=== PATIENT | female | born 1955 | race Caucasian/White ===

== ENCOUNTER 2022-06-15 18:14 | Inpatient (IN) | payer MEDICARE ==
[2022-06-15] MEDS ORDERED: SODIUM CHLORIDE 0.9% 1000 ML 1,000 ML IV ONE (18:25)
[2022-06-15 18:37] LABS: Mean Corpuscular HGB Conc 27 % (30-34); Mean Corpuscular Volume 100 fl (79-97); Platelet Count 512 K/mm3 (140-440); Red Blood Count 2.34 M/mm3 (3.65-5.03)
--- NOTE | 2022-06-15 18:52 | XRay Report ---
CHEST 1 VIEW 06/15/2022 6:18 PM INDICATION / CLINICAL INFORMATION: unresponsiveness; pt intubated. COMPARISON: None available. FINDINGS: SUPPORT DEVICES: ET tube tip is about 3.7 cm above the awais. HEART / MEDIASTINUM: No significant abnormality. LUNGS / PLEURA: There is significant volume loss in the right upper lobe which may be due to central obstructing mass. There is also patchy opacification left lower lung. No pneumothorax. ADDITIONAL FINDINGS: No significant additional findings. Signer Name: Americo Oscar MD Signed: 06/15/2022 6:48 PM Workstation Name: [id number]
[2022-06-15 18:59] LABS: Hematocrit 23.4 % (30.3-42.9); Hemoglobin 6.3 gm/dl (10.1-14.3); Red Cell Distribution Width 31.7 % (13.2-15.2)
--- NOTE | 2022-06-15 19:10 | Emergency Department Report ---
HPI - General Chief Complaint: Cardiac Arrest/CPR PUI?: No Time Seen by Provider: 06/15/22 18:23 - HPI HPI: 66-year-old female with history of stage IV lung cancer, per EMSs report, unknown other past medical history, brought in status post cardiac arrest. EMS reports that they received a call at 5:34 PM stating that the patient was in cardiac arrest. They arrived at the scene at 5:43 PM and found the patient with her eyes open, pupils dilated, and patient unresponsive. Began CPR at 5:45 PM. Patient was found to be in PEA arrest. She received a total of 3 rounds of epinephrine and 1 amp of bicarb. The patient was emergently intubated with a size ET tube, with ET tube being at level 22 at the patient's lips. At 6:05 PM, patient had ROSC. Per EMSs report, patient had multiple family members present but none spoke Citizen Of [place] and therefore patient's CODE STATUS is unknown. Patient has remained unresponsive since their arrival. She did not receive RSI's at the time of intubation. She has not been given any medication for sedation. ED Past Medical Hx - Past Medical History Hx of Cancer: Yes (lung cancer) ED Review of Systems ROS: Stated complaint: CARDIAC ARREST Other details as noted in HPI Comment: Unobtainable due to pts medical conditions Physical Exam - Physical Exam Vital Signs: Vital Signs 06/15/22 18:27 Pulse Rate 130 H Blood Pressure 151/84 [Left] General: Gen: pt is intubated; unresponsive; GCS 3; pt severely emaciated HEENT: Normocephalic atraumatic ; pupils 4mm, fixed, dilated, non reactive to light sclera anicteric; Neck: Full range of motion, no midline spinal tenderness palpation, no JVD, no carotid bruits, no nuchal rigidity CVS: S1-S2 regular rate and rhythm with no gallops rubs or murmurs, chest wall nontender Pulmonary: Coarse breath sounds, patient being ventilated by EMS personnel via bag valve mask Abdomen: flat nondistended nontender no guarding or rebound tenderness, no palpable deformities or step-offs, normal active bowel sounds, no hepatosplenomegaly, no pulsatile masses : No erythema, no no obvious bleeding, external genitalia grossly unremarkable Extremities: No cyanosis no clubbing no edema, intact distal peripheral pulses,; pt has IO via EMS, in RLE Integumentary: Skin normal, no petechia no purpura no abscess no lacerations no evidence of trauma no evidence of infection Neuro: Patient is intubated, unresponsive, GCS 3, no spontaneous movements, no fasciculations or tremors Psych: Patient is unresponsive ED Course Vital Signs 06/15/22 18:27 Pulse Rate 130 H Blood Pressure 151/84 [Left] - Reevaluation(s) Reevaluation #1: 06/15/22 19:21 The patient's son-in-law whose name is Sarwat has arrived. He reports that the patient was diagnosed with lung cancer at [facility] in March 2022. He states she has not seen an oncologist since being discharged from that facility several months ago. He states that she had persistent weakness at that time and has had progressively worsening weakness over the past several weeks. He states that his who is the patient's daughter, reported that the p atient had collapsed at home and was not able to get up and was not breathing. He states he believes the patient is a DO NOT INTUBATE DO NOT RESUSCITATE with respect to advanced directives but he does not have verification of this. He advises me to telephone [facility] and spoke to the nurse on staff there. Per her verbal report the patient has no documented DO NOT INTUBATE DO NOT RESUSCITATE orders. The patient was referred to the Hospice given that the patient is a hospice patient and the number he provided was [phone] 1938: I telephoned [facility] and spoke to the nursing staff there. Per nurses report, the patient has no documented DO NOT INTUBATE DO NOT RESUSCITATE order in place. She states that her son-in-law, Sarwat, is the healthcare proxy listed on file for the patient. Reevaluation #2: 06/15/22 19:50 Patient reassessed. She continues to remain unresponsive. Pupils remain 4 mm fixed and dilated. She has no spontaneous movement of her extremities. Condition remains critical. ED Medical Decision Making - Lab Data Result diagrams: 06/15/22 18:30 - EKG Data -: EKG Interpreted by Me - EKG Data When compared to previous EKG there are: previous EKG unavailable, other Interpretation: nonspecific ST-T wave rodolfo 06/15/22 19:45 EKG interpreted by me: Ventricular rate 120 bpm. Patient has discernible with P waves. No ST segment depressions or elevations. Patient has poor baseline in the 1 and V3. Low voltage QRS in precordial leads. - Radiology Data Radiology results: report reviewed - Medical Decision Making 66-year-old female with lung cancer brought in by EMS for questionable witnessed cardiac arrest. ROSC obtained via EMS prior to patient's arrival. Patient arrived with sustained vitals but subsequently became hypotensive. Central venous catheter placed by admitting hospitalist, Dr. Monique. Please see patient's electronic health record for his documented procedure note as well as impression and plan. Case discussed at length with the patient's son-in-law who was present. See patient's EHR for my discussion with him. Serum labs reviewed. patient has been accepted to the CCU for further management Critical care attestation.: If time is entered above; I have spent that time in minutes in the direct care of this critically ill patient, excluding procedure time. ED Disposition Clinical Impression: Cardiac arrest, Lung cancer, High anion gap metabolic acidosis Disposition: 09 ADMITTED INPATIENT Is pt being admited?: Yes Does the pt Need Aspirin: No Condition: Critical
[2022-06-15 19:21] LABS: Albumin 2.1 g/dL (3.9-5); Calcium 9.8 mg/dL (8.4-10.2)
[2022-06-15] MEDS: NORepinephrine/NS 8 MG-250 ML 8 MG/250 ML INFUS..BTL IV SCH (19:41)
--- NOTE | 2022-06-15 19:41 | History and Physical Report ---
History of Present Illness Chief complaint: Cardiac arrest History of present illness: 66 YO Female with Stage 4 Lung Cancer, Malnutrition, Vascular Dementia, Cerebral Atherosclerosis presents ED for evaluation. Patient is intubated and ambulatory support at time my evaluation is unable to provide history. Patient history provided by EMS staff, ED staff, as well as patient's family who was made available by telephone for interview. Patient family members report patient became unresponsive while at her home. EMS was notified and upon arrival the patient was found to be in distress and found to be in cardiac arrest. Patient emergently intubated in the field and initiated on ACLS protocol. Patient transported to [facility] for further care and evaluation. Patient received 3 rounds of epinephrine with 1 amp of bicarbonate with subsequent return of spontaneous perfusing rhythm. Patient seen and evaluated in the emergency department. All lab and imaging studies reviewed. Patient found to have septic shock suspected secondary to obstructive pneumonia, acute hypoxemic respiratory failure, acute kidney injury, anoxic brain injury. Patient found to have multiple organ system failure with concomitant poor prognosis. Patient admitted to ICU due to increased risk of worsening symptoms and for medical stabilization. Patient initiated on IV pressor support in the emergency department. No further history is obtainable. Patient found to have poor prognosis. Advanced care planning conducted in ED. Critical care team consulted. Patient currently admitted to [facility]. Patient family revoked hospice benefit at this time and request inpatient care. Past History Past Medical History: cancer, other (See HPI) Past Surgical History: No surgical history, Other (Reviewed) Social history: lives with family Family history: no significant family history, other (Reviewed) Medications and Allergies Allergies Allergy/AdvReac Type Severity Reaction Status Date / Time No Known Allergies Allergy Verified 06/15/22 19:05 Active Meds: Active Medications NORepinephrine/NS 8 MG-250 ML (Norepinephrine/Ns 8 Mg-250 Ml (Double Conc)) 8 mg in 250 mls @ 3.75 mls/hr IV TITRATE TERI; Protocol Review of Systems ROS unobtainable: due to endotracheal tube, due to mental status Exam - Constitutional Vitals: Temp Pulse Resp BP Pulse Ox 130 H 151/84 06/15/22 18:27 06/15/22 18:27 General appearance: Present: severe distress - EENT Eyes: Present: mydriasis ENT: hearing decreased - Neck Neck: Present: supple, normal ROM - Respiratory Respiratory effort: labored Respiratory: bilateral: diminished, rhonchi - Cardiovascular Rhythm: other (Hypertensive tachycardic) Heart Sounds: Present: S1 & S2. Absent: rub, click - Extremities Extremities: pulses symmetrical, No edema Peripheral Pulses: abnormal (Capillary refill greater than 3.5 seconds) - Integumentary Integumentary: Present: dry, clammy, decreased turgor - Musculoskeletal Musculoskeletal: generalized weakness - Psychiatric Psychiatric: no appropriate mood/affect, no intact judgment & insight, no memory intact - Neurologic Neurologic: no CNII-XII intact, focal deficits, no moves all extremities, no gait normal HEART Score - HEART Score Troponin: Troponin T 0.099 ng/mL (0.00-0.029) H 06/15/22 18:30 Results - Labs CBC & Chem 7: 06/15/22 18:30 06/15/22 18:30 Labs: Abnormal lab results 06/15/22 06/15/22 Range/Units 18:30 18:30 WBC 12.8 H (4.5-11.0) K/mm3 RBC 2.34 L (3.65-5.03) M/mm3 Hgb 6.3 L (10.1-14.3) gm/dl Hct 23.4 L (30.3-42.9) % MCV 100 H (79-97) fl MCH 27 L (28-32) pg MCHC 27 L (30-34) % RDW 31.7 H (13.2-15.2) % Plt Count 512 H (140-440) K/mm3 Carbon Dioxide 16 L (22-30) mmol/L BUN 70 H (7-17) mg/dL Creatinine 1.9 H (0.6-1.2) mg/dL Glucose 159 H (65-100) mg/dL AST 354 H (5-40) units/L ALT 67 H (7-56) units/L Alkaline Phosphatase 171 H (35-129) units/L Troponin T 0.099 H (0.00-0.029) ng/mL NT-Pro-B Natriuret Pep 5902 H (0-900) pg/mL Total Protein 5.5 L (6.3-8.2) g/dL Albumin 2.1 L (3.9-5) g/dL Assessment and Plan - Patient Problems (1) Septic shock Status: Acute Plan to address problem: Sepsis protocol: Chest x-ray, CBC, CMP, urinalysis, IV antibiotic therapy, IV fluid resuscitation therapy, maintain mean arterial pressure greater than equal 65, IV pressor support, serial lactic acid level. The high probability of a clinically significant, sudden or life threatening deterioration of the [cardiac, pulmonary, neuro, renal, infectious disease] system(s) required my full and direct attention, intervention and personal management. The aggregate critical care time was [95] minutes. This time is in addition to time spent performing reported procedures but includes the following: [x] Data Review and interpretation [x] Patient assessment and monitoring of vital signs [x] Documentation [x] Medication orders and management (2) Cardiac arrest Status: Acute Plan to address problem: Patient treated" with ACLS protocol with return of perfusing cardiac rhythm. (3) Pneumonia Status: Acute Plan to address problem: Chest x-ray, IV antibiotic therapy, IV fluid resuscitation therapy, supplemental oxygen, pulse oximetry, nebulizer therapy. Blood culture. (4) Lung malignancy Status: Acute Plan to address problem: Chronic, supportive care. Patient found to have poor prognosis. (5) Toxic metabolic encephalopathy Status: Acute Plan to address problem: CT scan head, neuro check, supportive care, treat sepsis. (6) Acute kidney injury (MOE) with acute tubular necrosis (ATN) Status: Acute Plan to address problem: IV fluid resuscitation therapy, monitor urine output every shift, monitor fluid balance, BMP in a.m. to monitor serum Creatinine as well as GFR. (7) Metabolic acidosis Status: Acute Plan to address problem: IV fluid resuscitation therapy, IV bicarbonate therapy. (8) Anoxic brain injury Status: Acute Plan to address problem: CT scan head. Patient pupils fixed and dilated. Patient found to have poor prognosis. (9) DVT prophylaxis Status: Acute Plan to address problem: SCD to bilateral lower extremities while in bed (10) Advance care planning Status: Acute Plan to address problem: Disease education conducted, care plan discussed, diagnoses discussed, poor prognosis discussed. Patient family acknowledged understanding and agreed with care plan. Patient currently full code at this time. Patient family elects to revoke hospice benefit and pursue aggressive care at this time. Patient family will notify primary care team after family conference. +30 minutes. (11) Preventative health care Status: Acute Plan to address problem: Patient family were counseled regarding poor prognosis and possible discharge back to hospice care. End-of-life care, and withdrawal of life support. As well as CODE STATUS. +30 minutes.
--- NOTE | 2022-06-15 19:55 | Procedure Note ---
Date of procedure: 06/15/22 Pre-op diagnosis: Sepsis acute hypoxemic respiratory failure, cardiac arrest Post-op diagnosis: same Procedure: Right internal jugular vein central lumen catheter placement under ultrasound guidance The patient was prepped and draped in the usual sterile fashion. A timeout was taken with the patient's nurse at bedside to verify the correct patient, the correct procedure and correct operative site. Local anesthesia obtained with 1% lidocaine. The Seldinger technique was utilized with ultrasound guidance to introduce a seeker needle into the right internal jugular vein. A guidewire was then advanced via the seeker needle into the right internal jugular vein and the seeker needle subsequently removed. A scalpel was used to incise the skin at the insertion site. A dilator was then passed over the guidewire into the right internal jugular vein and subsequently removed over the guidewire. A preflush triple-lumen catheter was then advanced to the right internal jugular vein over the guidewire and the guidewire subsequently removed. All 3 ports flush and drawl with ease. A Biopatch was placed at the insertion site. 3-0 silk suture was utilized to secure the catheter in place. Estimated blood loss minimal. Specimens none, complications none, postoperative chest x-ray reveals a central lumen catheter in expected position. Anesthesia: local Surgeon: FRANCI HENRIQUEZ Estimated blood loss: minimal Pathology: none Condition: critical Disposition: ICU
--- NOTE | 2022-06-15 20:13 | XRay Report ---
CHEST 1 VIEW 06/15/2022 7:52 PM INDICATION / CLINICAL INFORMATION: central line. COMPARISON: Chest x-ray done earlier today FINDINGS: SUPPORT DEVICES: NG tube extends below the diaphragm into the stomach. Right IJ central venous cathet er tip projects over the superior cavoatrial junction. ET tube appears well positioned. HEART / MEDIASTINUM: Stable. LUNGS / PLEURA: Stable volume loss in the right upper lung concerning for possible central obstructin g mass. Left lower lobe opacity. No pneumothorax. ADDITIONAL FINDINGS: No significant additional findings. IMPRESSION: 1. Lines and tubes as described. Signer Name: Americo Oscar MD Signed: 06/15/2022 8:08 PM Workstation Name: [id number]
[2022-06-15 20:55] LABS: Anisocytosis 1+; Band Neutrophils # (Manual) 0.4 K/mm3; Basophils % (Manual) 0 % (0.0-1.8); Eosinophils % (Manual) 0 % (0.0-4.3); Monocytes % (Manual) 0 % (0.0-7.3); Total Cells Counted 100
[2022-06-15 20:57] LABS: Platelet Estimate Consistent w Auto; Toxic Granulation 2+; Toxic Vacuolation 1+
--- NOTE | 2022-06-15 21:38 | Cat Scan Report ---
CT head/brain wo con INDICATION / CLINICAL INFORMATION: 66 years Female; cardiac arrest, intubated, unresponsive. TECHNIQUE: Routine CT head without contrast. All CT scans at this location are performed using CT dos e reduction for ALARA by means of automated exposure control. COMPARISON: None. FINDINGS: BRAIN / INTRACRANIAL CONTENTS: No acute hemorrhage, mass effect, midline shift, hydrocephalus, or acu te, large territorial infarct. Mild, diffuse cerebral atrophy. There are mild areas of decreased attenuation in the white matter of the cerebral hemispheres. These are nonspecific findings and may be related to microangiopathy (hypertension, diabetes, atheroscleros is), given the patient's age. CRANIOCERVICAL JUNCTION: No significant abnormality. ORBITS: No significant abnormality of visualized orbits. SINUSES / MASTOIDS: Visualized paranasal sinuses and mastoid air cells are essentially clear. ADDITIONAL FINDINGS: Atherosclerotic disease is seen in the anterior circulation. IMPRESSION: 1. No focal mass, hemorrhage, hydrocephalus, or acute, large territorial infarct. Signer Name: Milo Barry MD, III Signed: 06/15/2022 9:34 PM Workstation Name: [id number]
[2022-06-15] MEDS ORDERED: MORPHINE 2 MG/1 ML INJ IV PRN (22:24)
[2022-06-15] MEDS ORDERED: MORPHINE 4 MG/1 ML INJ IV PRN (22:24)
[2022-06-15] MEDS ORDERED: ACETAMINOPHEN 650 MG RECT SUPP PR PRN (22:24)
[2022-06-15] MEDS ORDERED: VANCOMYCIN PHARMACY TO DOSE IV SCH (23:00)
[2022-06-15] MEDS: CEFEPIME/NS 2 GM/100 ML 2 GM/100 ML BAG IV SCH (23:09)
[2022-06-15 23:37] LABS: ABG HCO3 17.7 mmol/L (20.0-26.0); ABG Methemoglobin 0.4 % (0.0-1.5); ABG Oxygen Saturation 96.4 % (95.0-99.0); ABG PCO2 31.8 mm Hg; ABG PH 7.363 pH Units (7.350-7.450); ABG PO2 70.1 mm Hg (80.0-90.0)
[2022-06-15] MEDS ORDERED: VANCOMYCIN 1,250 MG in SODIUM CHLORIDE 0.9% 250ML 250 ML IV ONE (23:45)
[2022-06-16] MEDS: SODIUM CHLORIDE 0.9% 1000 ML 1,000 ML IV SCH ×2 (01:26→07:43)
[2022-06-16] MEDS ORDERED: LORazepam 2 MG/ML VIAL IV PRN (04:34)
[2022-06-16 05:06] LABS: Hematocrit 27.5 % (30.3-42.9); Hemoglobin 7.5 gm/dl (10.1-14.3); Mean Corpuscular HGB Conc 27 % (30-34); Mean Corpuscular Volume 96 fl (79-97); Red Blood Count 2.85 M/mm3 (3.65-5.03); Red Cell Distribution Width 31.6 % (13.2-15.2)
[2022-06-16 05:07] LABS: Platelet Count 620 K/mm3 (140-440)
[2022-06-16] MEDS: NORepinephrine/NS 8 MG-250 ML 8 MG/250 ML INFUS..BTL IV SCH ×2 (05:13→09:41)
[2022-06-16 05:39] LABS: Monocytes % (Manual) 6.5 % (0.0-7.3); Total Cells Counted 200
[2022-06-16 05:40] LABS: Anisocytosis 2+; Basophils % (Manual) 0 % (0.0-1.8)
[2022-06-16 05:44] LABS: Platelet Estimate Consistent w Auto
[2022-06-16] MEDS ORDERED: LIP THERAPY VASELINE TP PRN (08:35)
[2022-06-16] MEDS ORDERED: MINERAL OIL/PETROLATUM, WHITE OPHTH OINT 3.5 GM OU PRN (08:35)
[2022-06-16] MEDS ORDERED: SODIUM CHLORIDE 0.9% 500 ML 500 ML IV ONE (09:00)
[2022-06-16] MEDS ORDERED: SODIUM CHLORIDE 0.9% 1000 ML 1,000 ML IV ONE (09:00)
[2022-06-16] MEDS ORDERED: VASOPRESSIN 20 UNIT in SODIUM CHLORIDE 0.9% 100 ML IV SCH (09:00)
--- NOTE | 2022-06-16 09:14 | XRay Report ---
ABDOMEN 1 VIEW(S) INDICATION / CLINICAL INFORMATION: feeding tube placement. COMPARISON: Previous day. FINDINGS: TUBES / LINES: NG tube in satisfactory position. BOWEL GAS PATTERN: No significant abnormality. ADDITIONAL FINDINGS: No significant additional findings. IMPRESSION: Satisfactory NG tube placement. Signer Name: Ayush Staples MD Signed: 06/16/2022 9:09 AM Workstation Name: [id number]
[2022-06-16 09:31] LABS: Creatine Kinase MB 7.4 ng/mL (0.0-4.0)
[2022-06-16] MEDS: CEFEPIME/NS 2 GM/100 ML 2 GM/100 ML BAG IV SCH (09:41)
[2022-06-16 09:51] LABS: C-Reactive Protein 5.6 mg/dL (0.00-1.30)
[2022-06-16] MEDS ORDERED: SENNOSIDES/DOCUSATE SODIUM 8.6/50 MG TAB FEEDTUBE SCH (10:00)
[2022-06-16] MEDS ORDERED: HEPARIN 5,000 UNIT/1 ML VIAL SUB-Q SCH (10:00)
[2022-06-16] MEDS ORDERED: FAMOTIDINE 20 MG/2 ML INJ IV SCH ×2 (10:00)
[2022-06-16] MEDS ORDERED: fentaNYL 100 MCG/2 ML INJ IV PRN (10:08)
--- NOTE | 2022-06-16 10:25 | Consultation ---
History of Present Illness Consult date: 06/16/22 Requesting physician: ALIA MCCANN Reason for consult: other (Cardiac Arrest with ROSC) History of present illness: PULMONARY/CCM CONSULT NOTE (Full dictation # [id number]) Please see dictated notes for full details Past History Past Medical History: cancer, other (See HPI) Past Surgical History: No surgical history, Other (Reviewed) Social history: lives with family Family history: no significant family history, other (Reviewed) Medications and Allergies Allergies Allergy/AdvReac Type Severity Reaction Status Date / Time No Known Allergies Allergy Verified 06/15/22 19:05 Active Meds: Active Medications Acetaminophen (Acetaminophen 650 Mg Rect Supp) 650 mg MN Q6H PRN PRN Reason: Pain MILD(1-3)/Fever >100.5/CHIU Famotidine (Famotidine 20 Mg/2 Ml Inj) 10 mg IV BID TERI Last Admin: 06/16/22 09:41 Dose: 10 mg Fentanyl (Fentanyl 100 Mcg/2 Ml Inj) 50 mcg IV Q10MIN PRN PRN Reason: ANALGESIA Heparin Sodium (Porcine) (Heparin 5,000 Unit/1 Ml Vial) 5,000 unit SUB-Q Q12HR TERI Last Admin: 06/16/22 09:41 Dose: 5,000 unit Hydrophilic Ointment (Lip Therapy Vaseline) 1 applic TP Q2HR PRN PRN Reason: Dry Lips NORepinephrine/NS 8 MG-250 ML (Norepinephrine/Ns 8 Mg-250 Ml (Double Conc)) 8 mg in 250 mls @ 3.75 mls/hr IV TITRATE TERI; Protocol Last Admin: 06/16/22 09:41 Dose: 30 mcg/min, 56.25 mls/hr Sodium Chloride (Nacl 0.9% 1000 Ml) 1,000 mls @ 150 mls/hr IV DIRECT TERI Last Admin: 06/16/22 07:43 Dose: 150 mls/hr Cefepime HCl (Cefepime/Ns 2 Gm/100 Ml) 2 gm in 100 mls @ 200 mls/hr IV Q24HR TERI; Protocol Last Admin: 06/16/22 09:41 Dose: 200 mls/hr Vancomycin HCl (Vancomycin/Ns 500 Mg/100 Ml) 500 mg in 100 mls @ 100 mls/hr IV Q24H TERI Vasopressin 20 unit/ Sodium (Chloride) 101 mls @ 9.09 mls/hr IV TITR TERI; Protocol Last Titration: 06/16/22 09:03 Dose: 0.03 units/min, 9.09 mls/hr Fentanyl Citrate (Fentanyl Drip Premix) 2,000 mcg in 100 mls @ 1.93 mls/hr IV TITR TERI; Protocol Lorazepam (Lorazepam 2 Mg/Ml Vial) 2 mg IV Q1H PRN PRN Reason: Seizures Last Admin: 06/16/22 05:14 Dose: 2 mg Multi-Ingred Cream/Lotion/Oil/Oint (Mineral Oil/Petrolatum, White Ophth Oint 3.5 Gm) 1 applic OU Q4HR PRN PRN Reason: Dry Eye(s) Senna/Docusate Sodium (Sennosides/Docusate Sodium 8.6/50 Mg Tab) 1 tab FEEDTUBE BID TERI Last Admin: 06/16/22 09:41 Dose: 1 tab Sodium Chloride (Sodium Chloride 0.9% 10 Ml Flush Syringe) 10 ml IV BID [facility] Last Admin: 06/16/22 09:42 Dose: 10 ml Sodium Chloride (Sodium Chloride 0.9% 10 Ml Flush Syringe) 10 ml IV PRN PRN PRN Reason: LINE FLUSH Physical Examination Vital signs: Vital Signs Pulse BP 130 H 151/84 06/15/22 18:27 06/15/22 18:27 Results - Laboratory Findings CBC and BMP: 06/16/22 04:25 06/16/22 04:25 ABG ABG pH 7.363 pH Units (7.350-7.450) 06/15/22 23:18 ABG pCO2 31.8 mm Hg 06/15/22 23:18 ABG pO2 70.1 mm Hg (80.0-90.0) L 06/15/22 23:18 ABG O2 Saturation 96.4 % (95.0-99.0) 06/15/22 23:18 Abnormal lab findings: Abnormal Labs 06/15/22 06/15/22 06/15/22 18:30 18:30 18:30 WBC 12.8 H RBC 2.34 L Hgb 6.3 L Hct 23.4 L MCV 100 H MCH 27 L MCHC 27 L RDW 31.7 H Plt Count 512 H Seg Neuts % (Manual) 87.0 H Lymphocytes % (Manual) 10.0 L Nucleated RBC % 5.0 H Seg Neutrophils # Man 11.1 H Monocytes # (Manual) ABG pO2 ABG HCO3 ABG Base Excess ABG Hemoglobin Oxyhemoglobin Potassium 5.5 H Carbon Dioxide 16 L BUN 70 H Creatinine 1.9 H Glucose 159 H POC Glucose Lactic Acid 13.30 H* Calcium AST 354 H ALT 67 H Alkaline Phosphatase 171 H Lactate Dehydrogenase CK-MB (CK-2) CK-MB (CK-2) Rel Index Troponin T 0.099 H C-Reactive Protein NT-Pro-B Natriuret Pep 5902 H Total Protein 5.5 L Albumin 2.1 L 06/15/22 06/15/22 06/16/22 20:47 23:18 00:23 WBC RBC Hgb Hct MCV MCH MCHC RDW Plt Count Seg Neuts % (Manual) Lymphocytes % (Manual) Nucleated RBC % Seg Neutrophils # Man Monocytes # (Manual) ABG pO2 70.1 L ABG HCO3 17.7 L ABG Base Excess -7.0 L ABG Hemoglobin 6.9 L Oxyhemoglobin 93.8 L Potassium Carbon Dioxide BUN Creatinine Glucose POC Glucose Lactic Acid 7.90 H* 6.80 H* Calcium AST ALT Alkaline Phosphatase Lactate Dehydrogenase CK-MB (CK-2) CK-MB (CK-2) Rel Index Troponin T C-Reactive Protein NT-Pro-B Natriuret Pep Total Protein Albumin 06/16/22 06/16/22 06/16/22 00:48 04:25 04:25 WBC 37.2 H RBC 2.85 L Hgb 7.5 L Hct 27.5 L MCV MCH 26 L MCHC 27 L RDW 31.6 H Plt Count 620 H Seg Neuts % (Manual) 86.0 H Lymphocytes % (Manual) 6.5 L Nucleated RBC % 1.0 H Seg Neutrophils # Man 32.0 H Monocytes # (Manual) 2.4 H ABG pO2 ABG HCO3 ABG Base Excess ABG Hemoglobin Oxyhemoglobin Potassium 5.3 H Carbon Dioxide 14 L BUN 70 H Creatinine 1.8 H Glucose POC Glucose 141 H Lactic Acid Calcium 8.0 L D AST ALT Alkaline Phosphatase Lactate Dehydrogenase CK-MB (CK-2) CK-MB (CK-2) Rel Index Troponin T C-Reactive Protein NT-Pro-B Natriuret Pep Total Protein Albumin 06/16/22 06/16/22 06/16/22 04:25 08:43 08:43 WBC RBC Hgb Hct MCV MCH MCHC RDW Plt Count Seg Neuts % (Manual) Lymphocytes % (Manual) Nucleated RBC % Seg Neutrophils # Man Monocytes # (Manual) ABG pO2 ABG HCO3 ABG Base Excess ABG Hemoglobin Oxyhemoglobin Potassium Carbon Dioxide BUN Creatinine Glucose POC Glucose Lactic Acid 10.50 H* Calcium AST ALT Alkaline Phosphatase Lactate Dehydrogenase 894 H CK-MB (CK-2) 7.4 H CK-MB (CK-2) Rel Index 5.9 H Troponin T 0.182 H* D C-Reactive Protein 5.60 H NT-Pro-B Natriuret Pep Total Protein Albumin
--- NOTE | 2022-06-16 10:34 | Consultation ---
History of Present Illness Consult date: 06/16/22 Consult reason: other (Respiratory failure) History of present illness: The patient is a 66-year-old woman who was brought to the emergency room following an out of hospital cardiopulmonary arrest. She was said to have been found at home, unresponsive with fixed dilated pupils, ACLS protocol was initiated and she was intubated in the field. In the chart, there is a report of this being a PEA arrest, there is no record of any primary cardiac dysrhythmias. Twelve-lead ECG in the hospital was in normal sinus rhythm, normal ECG with no ST or T wave changes of ischemia. The patient is history is notable for metastatic lung cancer which was diagnosed 3 months ago. The patient's family member at the bedside states that she d eclined all treatments that were offered for her metastatic cancer, preferred to be left alone on home hospice on comfort measures only. The son-in-law states that she has had very diminished appetite and has not eating properly in weeks to months. Chest x-ray shows total whiteout of the upper middle sections of the right lung field, which on CTA chest was reported as complete lung collapse due to an obstructing mass. The left lung field is clear, and the cardiac silhouette is normal in size. The patient is currently unresponsive in the ICU, on the ventilator, rhythm remains is stable mild sinus tachycardia. Past History Past Medical History: cancer, other (See HPI) Past Surgical History: No surgical history, Other (Reviewed) Social history: lives with family Family history: no significant family history, other (Reviewed) Medications and Allergies Allergies Allergy/AdvReac Type Severity Reaction Status Date / Time No Known Allergies Allergy Verified 06/15/22 19:05 Active Meds: Active Medications Acetaminophen (Acetaminophen 650 Mg Rect Supp) 650 mg [place] Q6H PRN PRN Reason: Pain MILD(1-3)/Fever >100.5/CHIU Famotidine (Famotidine 20 Mg/2 Ml Inj) 10 mg IV BID [facility] Last Admin: 06/16/22 09:41 Dose: 10 mg Fentanyl (Fentanyl 100 Mcg/2 Ml Inj) 50 mcg IV Q10MIN PRN PRN Reason: ANALGESIA Heparin Sodium (Porcine) (Heparin 5,000 Unit/1 Ml Vial) 5,000 unit SUB-Q Q12HR [facility] Last Admin: 06/16/22 09:41 Dose: 5,000 unit Hydrophilic Ointment (Lip Therapy Vaseline) 1 applic TP Q2HR PRN PRN Reason: Dry Lips NORepinephrine/NS 8 MG-250 ML (Norepinephrine/Ns 8 Mg-250 Ml (Double Conc)) 8 mg in 250 mls @ 3.75 mls/hr IV TITRATE TERI; Protocol Last Admin: 06/16/22 09:41 Dose: 30 mcg/min, 56.25 mls/hr Sodium Chloride (Nacl 0.9% 1000 Ml) 1,000 mls @ 150 mls/hr IV DIRECT TERI Last Admin: 06/16/22 07:43 Dose: 150 mls/hr Cefepime HCl (Cefepime/Ns 2 Gm/100 Ml) 2 gm in 100 mls @ 200 mls/hr IV Q24HR TERI; Protocol Last Admin: 06/16/22 09:41 Dose: 200 mls/hr Vancomycin HCl (Vancomycin/Ns 500 Mg/100 Ml) 500 mg in 100 mls @ 100 mls/hr IV Q24H TERI Vasopressin 20 unit/ Sodium (Chloride) 101 mls @ 9.09 mls/hr IV TITR TERI; Protocol Last Titration: 06/16/22 09:03 Dose: 0.03 units/min, 9.09 mls/hr Fentanyl Citrate (Fentanyl Drip Premix) 2,000 mcg in 100 mls @ 1.93 mls/hr IV TITR TERI; Protocol Last Admin: 06/16/22 10:27 Dose: 1 mcg/kg/hr, 1.93 mls/hr Lorazepam (Lorazepam 2 Mg/Ml Vial) 2 mg IV Q1H PRN PRN Reason: Seizures Last Admin: 06/16/22 05:14 Dose: 2 mg Multi-Ingred Cream/Lotion/Oil/Oint (Mineral Oil/Petrolatum, White Ophth Oint 3.5 Gm) 1 applic OU Q4HR PRN PRN Reason: Dry Eye(s) Senna/Docusate Sodium (Sennosides/Docusate Sodium 8.6/50 Mg Tab) 1 tab FEEDTUBE BID TERI Last Admin: 06/16/22 09:41 Dose: 1 tab Sodium Chloride (Sodium Chloride 0.9% 10 Ml Flush Syringe) 10 ml IV BID TERI Last Admin: 06/16/22 09:42 Dose: 10 ml Sodium Chloride (Sodium Chloride 0.9% 10 Ml Flush Syringe) 10 ml IV PRN PRN PRN Reason: LINE FLUSH Review of Systems ROS unobtainable: due to endotracheal tube, due to mental status Physical Examination Vital Signs Pulse BP 130 H 151/84 06/15/22 18:27 06/15/22 18:27 General appearance: cachectic, other (4-year-old cachectic, unresponsive on the ventilator) HEENT: Positive: Other (Pupils fixed) Neck: Positive: neck supple Cardiac: Positive: Regular Rhythm Lungs: Positive: Decreased Breath Sounds Neuro: Positive: Other (Unresponsive, on the vent) Abdomen: Positive: Soft Female genitourinary: deferred Skin: Positive: Clear Extremities: Absent: edema Results 06/16/22 04:25 06/16/22 04:25 Cardiac Enzymes 06/15/22 06/16/22 06/16/22 Range/Units 18:30 08:43 08:43 AST 354 H (5-40) units/L Lactate Dehydrogenase 894 H (91-180) units/L CK-MB (CK-2) 7.4 H (0.0-4.0) ng/mL CBC 06/15/22 06/16/22 Range/Units 18:30 04:25 WBC 12.8 H 37.2 H (4.5-11.0) K/mm3 RBC 2.34 L 2.85 L (3.65-5.03) M/mm3 Hgb 6.3 L 7.5 L (10.1-14.3) gm/dl Hct 23.4 L 27.5 L (30.3-42.9) % Plt Count 512 H 620 H (140-440) K/mm3 Comprehensive Metabolic Panel 06/15/22 06/16/22 Range/Units 18:30 04:25 Sodium 143 143 (137-145) mmol/L Potassium 5.5 H 5.3 H (3.6-5.0) mmol/L Chloride 101.1 104.9 (98-107) mmol/L Carbon Dioxide 16 L 14 L (22-30) mmol/L BUN 70 H 70 H (7-17) mg/dL Creatinine 1.9 H 1.8 H (0.6-1.2) mg/dL Glucose 159 H 99 (65-100) mg/dL Calcium 9.8 8.0 L D (8.4-10.2) mg/dL AST 354 H (5-40) units/L ALT 67 H (7-56) units/L Alkaline Phosphatase 171 H (35-129) units/L Total Protein 5.5 L (6.3-8.2) g/dL Albumin 2.1 L (3.9-5) g/dL EKG interpretations - Telemetry EKG Rhythm: Sinus Rhythm (With no acute ST or T wave abnormalities, normal ECG) Assessment and Plan - Patient Problems (1) Respiratory failure Current Visit: Yes Status: Acute Plan to address problem: 66-year-old woman with end-stage metastatic lung cancer on home hospice, who presents to the hospital following a cardiopulmonary arrest, manifested primarily by respiratory failure. No primary cardiac arrhythmias, post resuscitation ECG is normal, there is no indication of a primary cardiac component to her presentation. No further cardiac work-up is indicated, I will defer to internal medicine and the pulmonary critical care team for further management of respiratory failure and determination of level of supportive management based on patient's prior w ishes. We will sign off.
[2022-06-16 10:35] LABS: Chol/HDL Ratio 8.69 %
[2022-06-16] MEDS ORDERED: fentaNYL DRIP Premix 2,000 MCG/100 ML BAG IV SCH (11:00)
[2022-06-16 11:04] VITALS: BP 110/58
[2022-06-16] MEDS ORDERED: GLYCOPYRROLATE 0.4 MG/2 ML INJ IV PRN (11:11)
[2022-06-16] MEDS ORDERED: MORPHINE 2 MG/1 ML INJ IV PRN (11:11)
[2022-06-16] MEDS ORDERED: LORazepam 2 MG/ML VIAL IV ONE (11:14)
[2022-06-16] MEDS ORDERED: MORPHINE 4 MG/1 ML INJ IV ONE (11:14)
[2022-06-16] MEDS ORDERED: VANCOMYCIN/NS 500 MG/100 ML 500 MG/100 ML BAG IV SCH (12:00)
[2022-06-16] MEDS ORDERED: VANCOMYCIN/NS 1 GM/250 ML 1 GM/250 ML BAG IV SCH (12:00)
--- NOTE | 2022-06-16 12:22 | Progress Note ---
Assessment and Plan - Patient Problems (1) Septic shock Current Visit: No Status: Acute Plan to address problem: Sepsis protocol: Chest x-ray, CBC, CMP, urinalysis, IV antibiotic therapy, IV fluid resuscitation therapy, maintain mean arterial pressure greater than equal 65, IV pressor support, serial lactic acid level. The high probability of a clinically significant, sudden or life threatening deterioration of the [cardiac, pulmonary, neuro, renal, infectious disease] system(s) required my full and direct attention, intervention and personal ma nagement. The aggregate critical care time was [95] minutes. This time is in addition to time spent performing reported procedures but includes the following: [x] Data Review and interpretation [x] Patient assessment and monitoring of vital signs [x] Documentation [x] Medication orders and management (2) Cardiac arrest Current Visit: No Status: Acute Plan to address problem: Patient treated" with ACLS protocol with return of perfusing cardiac rhythm. (3) Pneumonia Current Visit: No Status: Acute Plan to address problem: Chest x-ray, IV antibiotic therapy, IV fluid resuscitation therapy, supplemental oxygen, pulse oximetry, nebulizer therapy. Blood culture. (4) Lung malignancy Current Visit: No Status: Acute Plan to address problem: Chronic, supportive care. Patient found to have poor prognosis. (5) Toxic metabolic encephalopathy Current Visit: No Status: Acute Plan to address problem: CT scan head, neuro check, supportive care, treat sepsis. (6) Acute kidney injury (MOE) with acute tubular necrosis (ATN) Current Visit: No Status: Acute Plan to address problem: IV fluid resuscitation therapy, monitor urine output every shift, monitor fluid balance, BMP in a.m. to monitor serum Creatinine as well as GFR. (7) Metabolic acidosis Current Visit: No Status: Acute Plan to address problem: IV fluid resuscitation therapy, IV bicarbonate therapy. (8) Anoxic brain injury Current Visit: No Status: Acute Plan to address problem: CT scan head. Patient pupils fixed and dilated. Patient found to have poor pr ognosis. (9) DVT prophylaxis Current Visit: No Status: Acute Plan to address problem: SCD to bilateral lower extremities while in bed (10) Advance care planning Current Visit: No Status: Acute Plan to address problem: Disease education conducted, care plan discussed, diagnoses discussed, poor prognosis discussed. . Patient family elects to make patient DNR active withdrawal of care. +30 minutes. (11) Preventative health care Current Visit: No Status: Acute Plan to address problem: Patient family were counseled regarding poor prognosis and possible discharge back to hospice care. End-of-life care, and withdrawal of life support initiated. . +30 minutes. History Interval history: 66 YO Female HD #2 with Stage 4 Lung Cancer, Malnutrition, Vascular Dementia, Cerebral Atherosclerosis, septic shock suspected secondary to obstructive pneumonia, acute hypoxemic respiratory failure, acute kidney injury, anoxic brain injury. Patient found to have multiple organ system failure with concomitant poor prognosis. Patient found to have multiple organ system fail ure. Patient family meeting conducted. Patient and family intact to make patient DNR and to conduct withdrawal of care. Patient remained critically ill overnight with no signs of improvement. Hospitalist Physical - Constitutional Vitals: Temp Pulse Resp BP Pulse Ox 98.0 F 0 L 0 L 110/58 96 06/16/22 07:16 06/16/22 11:55 06/16/22 11:55 06/16/22 11:00 06/16/22 11:50 General appearance: Present: severe distress, cachectic, other (4-year-old cachectic, unresponsive on the ventilator) - EENT Eyes: Present: mydriasis ENT: hearing decreased - Neck Neck: Present: supple - Respiratory Respiratory effort: labored Respiratory: bilateral: diminished - Cardiovascular Rhythm: regular - Extremities Extremity abnormal: edema Peripheral Pulses: abnormal - Abdominal General gastrointestinal: soft, non-tender, non-distended - Integumentary Integumentary: Present: clear, dry - Psychiatric Psychiatric: no appropriate mood/affect, no intact judgment & insight, no memory intact - Neurologic Neurologic: no CNII-XII intact, focal deficits, no moves all extremities, no gait normal HEART Score - HEART Score Troponin: Troponin T 0.182 ng/mL (0.00-0.029) H* D 06/16/22 08:43 Results - Labs CBC & Chem 7: 06/16/22 04:25 06/16/22 04:25 Labs: Laboratory Last Values WBC 37.2 K/mm3 (4.5-11.0) H 06/16/22 04:25 RBC 2.85 M/mm3 (3.65-5.03) L 06/16/22 04:25 Hgb 7.5 gm/dl (10.1-14.3) L 06/16/22 04:25 Hct 27.5 % (30.3-42.9) L 06/16/22 04:25 MCV 96 fl (79-97) 06/16/22 04:25 MCH 26 pg (28-32) L 06/16/22 04:25 MCHC 27 % (30-34) L 06/16/22 04:25 RDW 31.6 % (13.2-15.2) H 06/16/22 04:25 Plt Count 620 K/mm3 (140-440) H 06/16/22 04:25 Add Manual Diff Complete 06/16/22 04:25 Total Counted 200 06/16/22 04:25 Seg Neuts % (Manual) 86.0 % (40.0-70.0) H 06/16/22 04:25 Band Neutrophils % 0 % 06/16/22 04:25 Lymphocytes % (Manual) 6.5 % (13.4-35.0) L 06/16/22 04:25 Reactive Lymphs % (Man) 0 % 06/16/22 04:25 Monocytes % (Manual) 6.5 % (0.0-7.3) 06/16/22 04:25 Eosinophils % (Manual) 1.0 % (0.0-4.3) 06/16/22 04:25 Basophils % (Manual) 0 % (0.0-1.8) 06/16/22 04:25 Metamyelocytes % 0 % 06/16/22 04:25 Myelocytes % 0 % 06/16/22 04:25 Promyelocytes % 0 % 06/16/22 04:25 Blast Cells % 0 % 06/16/22 04:25 Nucleated RBC % 1.0 % (0.0-0.9) H 06/16/22 04:25 Seg Neutrophils # Man 32.0 K/mm3 (1.8-7.7) H 06/16/22 04:25 Band Neutrophils # 0.0 K/mm3 06/16/22 04:25 Lymphocytes # (Manual) 2.4 K/mm3 (1.2-5.4) 06/16/22 04:25 Abs React Lymphs (Man) 0.0 K/mm3 06/16/22 04:25 Monocytes # (Manual) 2.4 K/mm3 (0.0-0.8) H 06/16/22 04:25 Eosinophils # (Manual) 0.4 K/mm3 (0.0-0.4) 06/16/22 04:25 Basophils # (Manual) 0.0 K/mm3 (0.0-0.1) 06/16/22 04:25 Metamyelocytes # 0.0 K/mm3 06/16/22 04:25 Myelocytes # 0.0 K/mm3 06/16/22 04:25 Promyelocytes # 0.0 K/mm3 06/16/22 04:25 Blast Cells # 0.0 K/mm3 06/16/22 04:25 WBC Morphology Not Reportable 06/16/22 04:25 Hypersegmented Neuts Not Reportable 06/16/22 04:25 Hyposegmented Neuts Not Reportable 06/16/22 04:25 Hypogranular Neuts Not Reportable 06/16/22 04:25 Smudge Cells Not Reportable 06/16/22 04:25 Toxic Granulation Not Reportable 06/16/22 04:25 Toxic Vacuolation Not Reportable 06/16/22 04:25 Dohle Bodies Not Reportable 06/16/22 04:25 Pelger-Huet Anomaly Not Reportable 06/16/22 04:25 Raheel Rods Not Reportable 06/16/22 04:25 Platelet Estimate Consistent w auto 06/16/22 04:25 Clumped Platelets Not Reportable 06/16/22 04:25 Plt Clumps, EDTA Not Reportable 06/16/22 04:25 Large Platelets Not Reportable 06/16/22 04:25 Giant Platelets Not Reportable 06/16/22 04:25 Platelet Satelliting Not Reportable 06/16/22 04:25 Plt Morphology Comment Not Reportable 06/16/22 04:25 RBC Morphology Not Reportable 06/16/22 04:25 Dimorphic RBCs Not Reportable 06/16/22 04:25 Polychromasia Not Reportable 06/16/22 04:25 Hypochromasia Not Reportable 06/16/22 04:25 Poikilocytosis Not Reportable 06/16/22 04:25 Anisocytosis 2+ 06/16/22 04:25 Microcytosis Not Reportable 06/16/22 04:25 Macrocytosis Not Reportable 06/16/22 04:25 Spherocytes Not Reportable 06/16/22 04:25 Pappenheimer Bodies Not Reportable 06/16/22 04:25 Sickle Cells Not Reportable 06/16/22 04:25 Target Cells Not Reportable 06/16/22 04:25 Tear Drop Cells Not Reportable 06/16/22 04:25 Ovalocytes Not Reportable 06/16/22 04:25 Helmet Cells Not Reportable 06/16/22 04:25 [place] Bodies Not Reportable 06/16/22 04:25 [place] Rings Not Reportable 06/16/22 04:25 Rohith Cells Not Reportable 06/16/22 04:25 Bite Cells Not Reportable 06/16/22 04:25 Crenated Cell Not Reportable 06/16/22 04:25 Elliptocytes Not Reportable 06/16/22 04:25 Acanthocytes (Spur) Not Reportable 06/16/22 04:25 Rouleaux Not Reportable 06/16/22 04:25 Hemoglobin C Crystals Not Reportable 06/16/22 04:25 Schistocytes Not Reportable 06/16/22 04:25 Malaria parasites Not Reportable 06/16/22 04:25 Yao Bodies Not Reportable 06/16/22 04:25 Hem Pathologist Commnt No 06/16/22 04:25 D-Dimer > 43508 ng/mlDDU (0-234) H 06/16/22 08:43 ABG pH 7.363 pH Units (7.350-7.450) 06/15/22 23:18 ABG pCO2 31.8 mm Hg 06/15/22 23:18 ABG pO2 70.1 mm Hg (80.0-90.0) L 06/15/22 23:18 ABG HCO3 17.7 mmol/L (20.0-26.0) L 06/15/22 23:18 ABG O2 Saturation 96.4 % (95.0-99.0) 06/15/22 23:18 ABG O2 Content 9.2 (0.0-44) 06/15/22 23:18 ABG Base Excess -7.0 mmol/L (-2.0-3.0) L 06/15/22 23:18 ABG Hemoglobin 6.9 gm/dl (12.0-16.0) L 06/15/22 23:18 ABG Carboxyhemoglobin 2.4 % (0.0-5.0) 06/15/22 23:18 ABG Methemoglobin 0.4 % (0.0-1.5) 06/15/22 23:18 Oxyhemoglobin 93.8 % (95.0-99.0) L 06/15/22 23:18 FiO2 40 % 06/15/22 23:18 Sodium 143 mmol/L (137-145) 06/16/22 04:25 Potassium 5.3 mmol/L (3.6-5.0) H 06/16/22 04:25 Chloride 104.9 mmol/L (98-107) 06/16/22 04:25 Carbon Dioxide 14 mmol/L (22-30) L 06/16/22 04:25 Anion Gap 29 mmol/L 06/16/22 04:25 BUN 70 mg/dL (7-17) H 06/16/22 04:25 Creatinine 1.8 mg/dL (0.6-1.2) H 06/16/22 04:25 Estimated GFR 28 ml/min 06/16/22 04:25 BUN/Creatinine Ratio 39 % 06/16/22 04:25 Glucose 99 mg/dL (65-100) 06/16/22 04:25 POC Glucose 141 mg/dL (70-105) H 06/16/22 00:48 Lactic Acid 10.50 mmol/L (0.7-2.0) H* 06/16/22 04:25 Calcium 8.0 mg/dL (8.4-10.2) L D 06/16/22 04:25 Ferritin 8308.0 ng/mL (10.0-200.0) H 06/16/22 08:43 Total Bilirubin 0.30 mg/dL (0.1-1.2) 06/15/22 18:30 AST 354 units/L (5-40) H 06/15/22 18:30 ALT 67 units/L (7-56) H 06/15/22 18:30 Alkaline Phosphatase 171 units/L (35-129) H 06/15/22 18:30 Lactate Dehydrogenase 894 units/L (91-180) H 06/16/22 08:43 Total Creatine Kinase 124 units/L (30-135) 06/16/22 08:43 CK-MB (CK-2) 7.4 ng/mL (0.0-4.0) H 06/16/22 08:43 CK-MB (CK-2) Rel Index 5.9 (0-4) H 06/16/22 08:43 Troponin T 0.182 ng/mL (0.00-0.029) H* D 06/16/22 08:43 C-Reactive Protein 5.60 mg/dL (0.00-1.30) H 06/16/22 08:43 NT-Pro-B Natriuret Pep 5902 pg/mL (0-900) H 06/15/22 18:30 Total Protein 5.5 g/dL (6.3-8.2) L 06/15/22 18:30 Albumin 2.1 g/dL (3.9-5) L 06/15/22 18:30 Albumin/Globulin Ratio 0.6 % 06/15/22 18:30 Triglycerides 96 mg/dL (2-149) 06/16/22 08:43 Cholesterol 113 mg/dL (50-199) 06/16/22 08:43 LDL Cholesterol Direct 70 mg/dL (50-130) 06/16/22 08:43 HDL Cholesterol 13 mg/dL (40-59) L 06/16/22 08:43 Cholesterol/HDL Ratio 8.69 % 06/16/22 08:43 Procalcitonin 14.88 ng/mL (<0.15) 06/16/22 08:43 SARS-CoV-2 (PCR) Negative (Negative) 06/16/22 11:00 Mccabe/IV: Voiding Method Indwelling Catheter Active Medications - Current Medications Current Medications: Generic Name Dose Route Start Last Admin Trade Name Freq PRN Reason Stop Dose Admin Acetaminophen 650 mg 06/15/22 22:24 Acetaminophen 650 Mg Rect Supp [place] Q6H PRN Pain MILD(1-3)/Fever >100.5/CHIU Famotidine 10 mg 06/16/22 10:00 06/16/22 09:41 Famotidine 20 Mg/2 Ml Inj IV 10 mg BID TERI Administration Fentanyl 50 mcg 06/16/22 10:08 Fentanyl 100 Mcg/2 Ml Inj IV Q10MIN PRN ANALGESIA Glycopyrrolate 0.2 mg 06/16/22 11:11 06/16/22 11:34 Glycopyrrolate 0.4 Mg/2 Ml Inj IV 0.2 mg Q4H PRN Administration Secretions Heparin Sodium (Porcine) 5,000 unit 06/16/22 10:00 06/16/22 09:41 Heparin 5,000 Unit/1 Ml Vial SUB-Q 5,000 unit Q12HR TERI Administration Hydrophilic Ointment 1 applic 06/16/22 08:35 Lip Therapy Vaseline TP Q2HR PRN Dry Lips Sodium Chloride 1,000 mls @ 150 mls/hr 06/15/22 22:30 06/16/22 11:55 Nacl 0.9% 1000 Ml IV 0 mls/hr DIRECT TERI Infusion Fentanyl Citrate 2,000 mcg in 100 mls @ 1.93 mls/hr 06/16/22 11:00 06/16/22 11:55 Fentanyl Drip Premix IV 0 mcg/kg/hr TITR TERI 0 mls/hr Titration Protocol 1 MCG/KG/HR Lorazepam 2 mg 06/16/22 04:34 06/16/22 05:14 Lorazepam 2 Mg/Ml Vial IV 2 mg Q1H PRN Administration Seizures Morphine Sulfate 2 mg 06/16/22 11:11 Morphine 2 Mg/1 Ml Inj IV Q1H PRN mod pain or comfort measures Multi-Ingred Cream/Lotion/Oil/Oint 1 applic 06/16/22 08:35 Mineral Oil/Petrolatum, White Ophth Oint 3.5 Gm OU Q4HR PRN Dry Eye(s) Senna/Docusate Sodium 1 tab 06/16/22 10:00 06/16/22 09:41 Sennosides/Docusate Sodium 8.6/50 Mg Tab FEEDTUBE 1 tab BID TERI Administration Sodium Chloride 10 ml 06/16/22 10:00 06/16/22 09:42 Sodium Chloride 0.9% 10 Ml Flush Syringe IV 10 ml BID TERI Administration Sodium Chloride 10 ml 06/15/22 22:24 Sodium Chloride 0.9% 10 Ml Flush Syringe IV PRN PRN LINE FLUSH
--- NOTE | 2022-06-16 12:26 | Death Summary ---
Summary - Providers Consults: 06/15/22 22:24 Consult to Dietitian/Nutrition [CONS] Routine Physician Instructions: Reason For Exam: Reason for Consult: Write/Manage Tube Feeding Consult to Physician [CONS] Routine Comment: Consulting Provider: EMILY VELARDE Physician Instructions: Reason For Exam: Cardiac Arrest,Septic Shock Attending: ROSALES FARIA MD - summary Date of admission: 06/15/22 22:24 Date of : 06/16/22 Disposition: 66 YO Female HD #2 with Stage 4 Lung Cancer, Malnutrition, Vascular Dementia, Cerebral Atherosclerosis, septic shock suspected secondary to obstructive pneumonia, acute hypoxemic respiratory failure, acute kidney injury, anoxic brain injury. Patient found to have multiple organ system failure with concomitant poor prognosis. Patient found to have multiple organ system failure. Patient family meeting conducted. Patient and family intact to make patient DNR and to conduct withdrawal of care. 66 YO Female HD #2 with Stage 4 Lung Cancer, Malnutrition, Vascular Dementia, Cerebral Atherosclerosis, septic shock suspected secondary to obstructive pneumonia, acute hypoxemic respiratory failure, acute kidney injury, anoxic brain injury. Patient found to have multiple organ system failure with concomitant poor prognosis. Patient found to have multiple organ system failure. Patient family meeting conducted. Patient and family intact to make patient DNR and to conduct withdrawal of care. Patient remained critically ill overnight with no signs of improvement. Patient extubated and withdrawal of care plan initiated with concomitant comfort care measures. Patient seen and evaluated. Exam: Patient pupils are fixed and dilated with absent brainstem reflexes, pulmonary exam: Patient was found to have absent lung sounds. Cardiac exam: Asystole was found on the court monitor. Patient pronounced at 1155 hrs. Bereavement services offered. Patient family grieving appropriately. +30 minutes. - Final diagnosis (1) Septic shock Note: Final diagnosis: (2) Cardiac arrest Note: Final diagnosis: (3) Pneumonia Note: Final diagnosis: (4) Lung malignancy Note: Final diagnosis: (5) Toxic metabolic encephalopathy Note: Final diagnosis: (6) Acute kidney injury (MOE) with acute tubular necrosis (ATN) Note: Final diagnosis: (7) Metabolic acidosis Note: Final diagnosis: (8) Anoxic brain injury Note: Final diagnosis: (9) DVT prophylaxis Note: Final diagnosis: (10) Advance care planning Note: Final diagnosis: (11) Preventative health care Note: Final diagnosis:
--- NOTE | 2022-06-16 14:10 | Electrocardiograph Report ---
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
--- NOTE | 2022-06-17 04:04 | Consultation ---
DATE OF CONSULTATION: 06/16/2022 PULMONARY CRITICAL CARE CONSULT NOTE CONSULTING PHYSICIAN: Dr. Robb Tracy. REASON FOR CONSULTATION: Cardiac arrest with return of spontaneous circulation, septic shock. CHIEF COMPLAINT AND HISTORY OF PRESENT ILLNESS: As follows. The patient is a now 66-year-old female with a past medical history significant for stage IV lung cancer who actually was on home hospice. According to the records, the patient became unresponsive while at home. EMS was notified. They found the patient in distress and cardiac arrest. She was immediately intubated in the field. ACLS protocol was started. CPR was started. There was return of spontaneous circulation. She reportedly received 3 rounds of epinephrine, 1 amp of bicarbonate. In the ER, the Emergency Department physician saw her, she was found to have likely obstructive pneumonia involving the right upper lung zones and an acute kidney injury. She had a lactic acidosis with lactic acid levels, I believe about 15. There was suspicion at that point for significant anoxic injury. Sepsis protocol was started and post-intubation, she was brought into the Intensive Care Unit. I had spoken with the respiratory therapist in the Emergency Room and I had empirically increased her set rate to about 25 because she did have a metabolic acidosis and was not overbreathing, the ventilator set rate of about 14 at that time, so forth on compensation. When I stopped by to see her today, she remained on the mechanical ventilator. She has decompensated further and now on 30 mcg of Levophed per minute as well as having just been started on vasopressin. I had also ordered 1 liter normal saline bolus to try and get her mean arterial pressures above 65 mmHg. I do not have any history of vomiting or overt aspiration. This really is as much of the history of this presentation as I have. She is not a current smoker, remote history is unknown. PAST MEDICAL HISTORY: Stage IV lung cancer, severe protein calorie malnutrition, vascular dementia, prior cerebrovascular accident. PAST SURGICAL HISTORY: None. MEDICATIONS: She was on at the time I stopped by to see her according to the medication administration record included the following: Tylenol 650 mg per rectum q. 6 hours p.r.n. mild pain or fevers, cefepime 2 grams IV daily, Pepcid 10 mg IV b.i.d., fentanyl drip, has just been ordered by me to start at 0.5 mcg/kilogram per hour, heparin 5000 units subcutaneously q. 12 hours, Ativan 2 mg IV q. 1 hour p.r.n. seizures, Levophed again was going at 30 mcg per minute, vasopressin was going at 0.03 units per minute and vancomycin 500 mg IV daily. ALLERGIES: No known drug allergies. DIET: Cachectic looking lady, acute weight loss or gain history is unknown. FAMILY AND SOCIAL HISTORY: Lives at home in the community. Strong family support appropriately on home hospice. No current alcohol, tobacco or illicit drug use or abuse. Remote history is unknown. FAMILY HISTORY: Otherwise, noncontributory. REVIEW OF SYSTEMS: Unobtainable secondary to the patient's medical and mental condition. Since she has been here, no gross hematochezia or melena, no gross hematuria, no hematemesis, no bloody tracheal secretions, no witnessed seizures. Review of systems is otherwise unobtainable. PHYSICAL EXAMINATION: VITAL SIGNS: On presentation in the Emergency Room, review of the vital signs shows that she was hypothermic with a temperature of 94.3 degrees Fahrenheit at presentation. Her pulse was 130, respiratory rate was 12, blood pressure was 70/35, O2 sats actually the 1st recorded was about 94% that was on 50% FiO2, on the mechanical ventilator. GENERAL: She is elderly and chronically ill looking lady, normocephalic, atraumatic with temporal wasting on the mechanical ventilator without significant patient ventilator dyssynchrony. HEAD, EYES, EARS, NOSE AND THROAT: Anicteric. No conjunctival erythema. Oropharynx was dry. NECK: No gross jugular venous distention, no thyromegaly. Endotracheal tube was in place taped around 23-24 cm at the lip. She did have a right internal jugular central line. No significant bleeding around the stoma. Grossly, there were no palpable lymph nodes in the supraclavicular or submandibular lymph node chains. LUNGS: Auscultation of both lung samano significant for diminished right upper lung zone air movement. No active wheezing. Some bilateral rales. HEART: Sounds 1 and 2 are heard, otherwise regular rate and rhythm without overt rubs or murmurs. ABDOMEN: Soft, flat, bowel sounds are positive, nontender, no palpable hepatosplenomegaly. EXTREMITIES: Without overt digital clubbing or cyanosis. No pedal edema. Pedal pulses are 2+ bilaterally. NEUROLOGIC: Pupils were equal, round, about 2 mm, reactive to light. Extraocular muscle movements could not be assessed. SKIN: Very poor turgor; however, without overt cellulitis or rash in the areas that I examined. Please see the wound care nurses' notes for full description of her skin. She was not following commands. PSYCHIATRIC: Mood and affect could not be assessed. She was encephalopathic. LABORATORY DATA: For our review as follows. White count was 12,800, hemoglobin 6.3, hematocrit 23.4, platelet count 512, 3% band neutrophils. Arterial blood gas showed a pH of 7.36, pCO2 of 32, pO2 of 70 that was on 40% FiO2. Serum sodium was 145, potassium 5.5, chloride 101, bicarbonate 16, BUN 70, creatinine 1.9, glucose was 159. Lactic acid level at presentation was 13.3. Liver function tests, AST 354, ALT 67. Troponin 0.099, that is up to 0.182. BNP 5902. No microbiology studies yet for my review. Chest x-ray shows near complete whiteout of the right lung with mediastinal shift to the right. Endotracheal tube tip is in good position. A right IJ central line tip is in the distal SVC. No gross pneumothorax, no gross bony fracture. The left lower lobe, in particular shows some pulmonary nodule/infiltrate. A CT scan of her head was done, which showed no focal mass, hemorrhage or hydrocephalus. Abdominal x-ray shows a feeding tube in good position. ASSESSMENT: 1. Cardiac arrest with return of spontaneous circulation. 2. Acute hypoxemic respiratory failure, on mechanical ventilatory support. 3. Severe metabolic acidosis. 4. Acute kidney injury. 5. Stage IV lung cancer. 6. Severe protein calorie malnutrition. 7. Oropharyngeal dysphagia. 8 . Adult failure to thrive. 9. Anemia that is microcytic. 10. Leukocytosis. 11. Hyperkalemia. 12. Lactic acidosis. PLAN: I have again started on vasopressors and started on Levophed, volume resuscitation is ongoing. I have, however, had a discussion with the family members. They say that she never wanted to be resuscitated. They want to get her back on hospice and actually contemplating the withdrawal. They will discuss further amongst themselves. In the meantime, we will again begin fentanyl at a low dose to ensure that she is comfortable. It looks like the family' is headed towards her withdrawal. She remains critically ill on life-sustaining interventions including mechanical ventilatory support and vasopressor support. We will continue all other empiric treatment including antibiotics at this time. Thank you very much for the consult. We will follow along and make further recommendations as picture progresses/becomes clearer. She is critically ill. At this time, I spent about 35-40 minutes of critical care time without overlap and excluding any procedural time that may be necessary. TID: [id number] RECEIPT: [id number] JOSSIE/SHAYNA
--- NOTE | 2022-06-17 07:11 | Consultation ---
History of Present Illness Consult date: 06/16/22 Reason for Consult: s/p cardiac arrest Chief complaint: Encephalopathy History of present illness: 66 yo female with stage IV lung cancer (on home hospice), vascular dementia, who presented to the hospital where she was found in PEA and ROSC > 20 minutes. Noted with severe encephalopathy during this hospitalization. Past History Past Medical History: cancer, other (See HPI) Past Surgical History: No surgical history, Other (Reviewed) Social history: lives with family Family history: no significant family history, other (Reviewed) Medications and Allergies Allergies Allergy/AdvReac Type Severity Reaction Status Date / Time No Known Allergies Allergy Verified 06/15/22 19:05 Review of Systems ROS unobtainable: due to mental status Physical Examination - Vital Signs Vital Signs: Vital Signs Pulse BP 130 H 151/84 06/15/22 18:27 06/15/22 18:27 - Physical Exam Narrative exam: Gen: nad, intubated; Head: normocephalic; Eyes: +gaze deviation; ENT: +ETT; CVS: warm and well-perfused; Pulm: no respiratory distress; GI: appears non-distended; Ext: no cyanosis appreciated at distal extremities; Skin: no acute rash appreciated at distal extremities; Heme: no pathologic ecchymosis appreciated at distal extremities; Neuro: comatose, intubated, per rn at bedside, pt is noted to breathe over the ventilator's respiratory setting; CN 2 - right pupil is deviated under the upper eyelid & cannot be tested; left pupil is nonreactive, CN 3, 4, 6 - oculocephalic intact, CN 5/7 - corneal reflex is present bilaterally but partially, CN 9/10 - no cough reflex elicited via ETT, CN 11/12 - pt cannot cooperate secondary to LOC; Motor/Sensory - 0/5 at all exts to tactile stimuli; Cerebellar/Gait - pt cannot cooperate secondary to LOC; Results - Laboratory Findings CBC and BMP: 06/16/22 04:25 06/16/22 04:25 Abnormal Lab Findings: Abnormal Labs 06/15/22 06/15/22 06/15/22 18:30 18:30 18:30 WBC 12.8 H RBC 2.34 L Hgb 6.3 L Hct 23.4 L MCV 100 H MCH 27 L MCHC 27 L RDW 31.7 H Plt Count 512 H Seg Neuts % (Manual) 87.0 H Lymphocytes % (Manual) 10.0 L Nucleated RBC % 5.0 H Seg Neutrophils # Man 11.1 H Monocytes # (Manual) D-Dimer ABG pO2 ABG HCO3 ABG Base Excess ABG Hemoglobin Oxyhemoglobin Potassium 5.5 H Carbon Dioxide 16 L BUN 70 H Creatinine 1.9 H Glucose 159 H POC Glucose Lactic Acid 13.30 H* Calcium Ferritin AST 354 H ALT 67 H Alkaline Phosphatase 171 H Lactate Dehydrogenase CK-MB (CK-2) CK-MB (CK-2) Rel Index Troponin T 0.099 H C-Reactive Protein NT-Pro-B Natriuret Pep 5902 H Total Protein 5.5 L Albumin 2.1 L HDL Cholesterol 06/15/22 06/15/22 06/16/22 20:47 23:18 00:23 WBC RBC Hgb Hct MCV MCH MCHC RDW Plt Count Seg Neuts % (Manual) Lymphocytes % (Manual) Nucleated RBC % Seg Neutrophils # Man Monocytes # (Manual) D-Dimer ABG pO2 70.1 L ABG HCO3 17.7 L ABG Base Excess -7.0 L ABG Hemoglobin 6.9 L Oxyhemoglobin 93.8 L Potassium Carbon Dioxide BUN Creatinine Glucose POC Glucose Lactic Acid 7.90 H* 6.80 H* Calcium Ferritin AST ALT Alkaline Phosphatase Lactate Dehydrogenase CK-MB (CK-2) CK-MB (CK-2) Rel Index Troponin T C-Reactive Protein NT-Pro-B Natriuret Pep Total Protein Albumin HDL Cholesterol 06/16/22 06/16/22 06/16/22 00:48 04:25 04:25 WBC 37.2 H RBC 2.85 L Hgb 7.5 L Hct 27.5 L MCV MCH 26 L MCHC 27 L RDW 31.6 H Plt Count 620 H Seg Neuts % (Manual) 86.0 H Lymphocytes % (Manual) 6.5 L Nucleated RBC % 1.0 H Seg Neutrophils # Man 32.0 H Monocytes # (Manual) 2.4 H D-Dimer ABG pO2 ABG HCO3 ABG Base Excess ABG Hemoglobin Oxyhemoglobin Potassium 5.3 H Carbon Dioxide 14 L BUN 70 H Creatinine 1.8 H Glucose POC Glucose 141 H Lactic Acid Calcium 8.0 L D Ferritin AST ALT Alkaline Phosphatase Lactate Dehydrogenase CK-MB (CK-2) CK-MB (CK-2) Rel Index Troponin T C-Reactive Protein NT-Pro-B Natriuret Pep Total Protein Albumin HDL Cholesterol 06/16/22 06/16/22 06/16/22 04:25 08:43 08:43 WBC RBC Hgb Hct MCV MCH MCHC RDW Plt Count Seg Neuts % (Manual) Lymphocytes % (Manual) Nucleated RBC % Seg Neutrophils # Man Monocytes # (Manual) D-Dimer > 96966 H ABG pO2 ABG HCO3 ABG Base Excess ABG Hemoglobin Oxyhemoglobin Potassium Carbon Dioxide BUN Creatinine Glucose POC Glucose Lactic Acid 10.50 H* Calcium Ferritin 8308.0 H AST ALT Alkaline Phosphatase Lactate Dehydrogenase CK-MB (CK-2) CK-MB (CK-2) Rel Index Troponin T C-Reactive Protein NT-Pro-B Natriuret Pep Total Protein Albumin HDL Cholesterol 06/16/22 06/16/22 08:43 08:43 WBC RBC Hgb Hct MCV MCH MCHC RDW Plt Count Seg Neuts % (Manual) Lymphocytes % (Manual) Nucleated RBC % Seg Neutrophils # Man Monocytes # (Manual) D-Dimer ABG pO2 ABG HCO3 ABG Base Excess ABG Hemoglobin Oxyhemoglobin Potassium Carbon Dioxide BUN Creatinine Glucose POC Glucose Lactic Acid Calcium Ferritin AST ALT Alkaline Phosphatase Lactate Dehydrogenase 894 H CK-MB (CK-2) 7.4 H CK-MB (CK-2) Rel Index 5.9 H Troponin T 0.182 H* D C-Reactive Protein 5.60 H NT-Pro-B Natriuret Pep Total Protein Albumin HDL Cholesterol 13 L Assessment and Plan 66 yo female with stage IV lung cancer (on home hospice), vascular dementia, who presented to the hospital where she was found in PEA and ROSC > 20 minutes. Noted with severe encephalopathy during this hospitalization. 1. Acute Hypoxic/Anoxic Encephalopathy - concern is raised for severe cerebral injury; may repeat nchct and a routine eeg for further confirmation; see #3 below. 2. Status Epilepticus - confirm with eeg; see #3 below. 3. Stage IV Metastatic Lung Cancer - pt was on home hospice; per family wishes regarding above testing. 4. Vascular Dementia - unclear if pt has cerebral metastases that contribute to the underlying dementia. 5. No further recommendations except as above, neurology will signoff. Dyllan Ramires MD Neurology [id number]
== END 2022-06-16 13:00 | DRG 871 ==
LOC: ED 18:14 → CC1 22:24
PROVIDERS: ADMIT Internal Medicine; ATTEND Internal Medicine
PROC: 4A033R1 Measurement of Arterial Saturation, Peripheral, Percutaneous Approach (ICD-10-PCS; principal; 2022-06-15)
PROC: 5A1935Z Respiratory Ventilation, Less than 24 Consecutive Hours (ICD-10-PCS; 2022-06-15)
PROC: 0BH17EZ Insertion of Endotracheal Airway into Trachea, Via Natural or Artificial Opening (ICD-10-PCS; 2022-06-15)
PROC: 02HV33Z Insertion of Infusion Device into Superior Vena Cava, Percutaneous Approach (ICD-10-PCS; 2022-06-15)
PROC: B548ZZA Ultrasonography of Superior Vena Cava, Guidance (ICD-10-PCS; 2022-06-15)
DX: A41.9 Sepsis, unspecified organism (principal); G92.8 Other toxic encephalopathy; R65.21 Severe sepsis with septic shock; J18.9 Pneumonia, unspecified organism; N17.0 Acute kidney failure with tubular necrosis; E46 Unspecified protein-calorie malnutrition; C34.90 Malignant neoplasm of unspecified part of unspecified bronchus or lung; G93.1 Anoxic brain damage, not elsewhere classified; Z68.1 Body mass index [BMI] 19.9 or less, adult; I46.9 Cardiac arrest, cause unspecified; Z20.822 Contact with and (suspected) exposure to COVID-19; F01.50 Vascular dementia, unspecified severity, without behavioral disturbance, psychotic disturbance, mood disturbance, and anxiety; I67.2 Cerebral atherosclerosis; G40.901 Epilepsy, unspecified, not intractable, with status epilepticus
CPT/HCPCS: 36415; 36600; 70450; 71045; 74018; 80048; 80053; 80061; 82140; 82550; 82553; 82728; 82803; 82962; 83615; 83880; 84145; 84484; 85007; 85025; 85379; 86140; 87040; 87070; 87205; 93005; 94002; 94003; G0378; J1815; J2354; J3490; J0692; J1644; J2060; J2270; J3010; J3370; J7030; J7050; U0003